=== PATIENT | male | born 2000 | race Two or more races ===

== ENCOUNTER 2023-05-29 11:22 | Emergency (ER) | payer BC, SELFPAY ==
[2023-05-29 11:40] VITALS: BP 120/81; PULSE 89; RESP 16; TEMP 36.6; O2SAT 100
--- NOTE | 2023-05-29 11:47 | ED.URI ---
HPI - URI/Sore Throat General Chief Complaint: Upper Respiratory Infection Stated Complaint: Sinus Infection symptoms Source: patient and RN notes reviewed Mode of arrival: ambulatory Limitations: no limitations History of Present Illness HPI Narrative: Patient is a 22-year-old male who presents to the [facility] with complaints of increased fatigue since Sunday. Patient states that he has also had some ear fullness, nasal congestion, headache, sore throat. Patient states that his girlfriend has similar symptoms. He denies cough, chest pain, shortness of breath. Denies abdominal pain, nausea, vomiting, diarrhea. Related Data Home Medications Medication Instructions Recorded Confirmed cetirizine 10 mg tablet (Zyrtec) 10 mg PO QHS PRN 11/29/21 11/29/21 Allergies Allergy/AdvReac Type Severity Reaction Status Date / Time No Known Allergies Allergy Mild Verified 11/29/21 16:11 Review of Systems Review of Systems: CONSTITUTIONAL: Denies fever, chills, or sweats. EYES: Denies visual changes, redness, or discharge. ENT: Reports ear fullness and sore throat. Reports nasal congestion and drainage. CARDIOVASCULAR: Denies chest pain, palpitations, or edema. RESPIRATORY: Denies cough or dyspnea. GASTROINTESTINAL: Denies abdominal pain, nausea, vomiting, or diarrhea. GENITOURINARY: Denies dysuria or hematuria. SKIN: Denies rash or itching. MUSCULOSKELETAL: Denies back pain, joint pain, or myalgia. NEUROLOGIC: Reports headache but denies numbness or weakness. Pertinent positives per HPI. [facility]LY [facility] Past Medical History Medical History Anxiety Insomnia Obesity (BMI 35.0-39.9 without comorbidity) Pharyngitis Seasonal allergic rhinitis Vaping nicotine dependence, non-tobacco product Weight gain Family History Family History Mother Anxiety Father Heart disease Sibling Thyroid disorder Social History Social History Smoking status: Never smoker Alcohol intake: current Alcohol use details: vodka Substance use: never Substance use type: does not use Comments At the time of my signature, I reviewed and agree with the nursing past medical, surgical, social, and family history. There is no relevant family history pertinent to the patient complaint. Exam Narrative: GENERAL: This is a well-nourished, well-developed patient, in no apparent distress. HEAD: normocephalic, atraumatic. EYES: Sclera clear/white. Vision is grossly intact. EARS: External ears normal, auditory canals clear and without drainage, TMs normal without perforation. Hearing grossly intact. NOSE: External nose normal. Mild congestion. THROAT: Mucous membranes moist. Oropharyngeal erythema without exudate or ulceration NECK: Neck supple, non-tender without lymphadenopathy, masses or thyromegaly. CARDIOVASCULAR: Regular rate and rhythm without murmurs, gallops, or rubs. RESPIRATORY: Clear to auscultation. Breath sounds equal bilaterally. No wheezes, rales, or rhonchi. GASTROINTESTINAL: Abdomen soft, non-tender, nondistended. Bowel sounds are active. No hepato-splenomegaly, or palpable masses. No guarding. SKIN: warm, intact with no suspicious lesions or rash, good texture and turgor. NEURO: awake, alert, and oriented to person, place and time. There were no obvious focal neurologic abnormalities. Course Course Level of Care: Express Care Visit Vital Signs Vital signs: Vital Signs Temperature 98 F 05/29/23 11:40 Pulse Rate 89 05/29/23 11:40 Respiratory Rate 16 05/29/23 11:40 Blood Pressure 120/81 05/29/23 11:40 Pulse Oximetry 100 05/29/23 11:40 Temperature 98 F 05/29/23 11:40 Pulse Rate 89 05/29/23 11:40 Respiratory Rate 16 05/29/23 11:40 Blood Pressure 120/81 05/29/23 11:40 Pulse Oximetry 100 05/29/23 11:40 Reviewed
== END 2023-05-29 12:06 | disposition home or self-care (01) ==
PROVIDERS: Emergency Provider Nurse Practitioner
DX: B34.9 Viral infection, unspecified (principal)
CPT/HCPCS: 87081; 87880; 99213; G0463

== ENCOUNTER 2023-07-01 17:11 | Emergency (ER) | payer BC, SELFPAY ==
[2023-07-01 17:36] VITALS: BP 117/67; PULSE 78; RESP 16; TEMP 36.8; O2SAT 98
--- NOTE | 2023-07-01 17:51 | ED.URI ---
HPI - URI/Sore Throat General Chief Complaint: Upper Respiratory Infection Stated Complaint: Sore Throat Time Seen by Provider: 07/01/23 17:51 Source: patient, RN notes reviewed and old records reviewed Mode of arrival: ambulatory Limitations: no limitations History of Present Illness HPI Narrative: 22-year-old male presents to the [facility] with complaints of a sore throat that started Sunday, 5 days ago. Patient has tried [id number] products and a Tylenol cold tablet. Denies fevers. Patient reports that everything in his throat felt swollen. Patient maintaining on secretions. Able to eat and drink without issue. Onset (ago): day(s) (5) Related Data Home Medications Medication Instructions Recorded Confirmed cetirizine 10 mg tablet (Zyrtec) 10 mg PO QHS PRN 11/29/21 11/29/21 Allergies Allergy/AdvReac Type Severity Reaction Status Date / Time No Known Allergies Allergy Mild Verified 11/29/21 16:11 Review of Systems Review of Systems: All systems reviewed & are unremarkable except as noted in HPI and below Constitutional: Constitutional: Reports no additional constitutional complaints Eyes: Eyes: Reports no additional eye complaints ENT: Reports as per HPI and Reports sore throat Cardiovascular: Cardiovascular: Reports no additional cardiovascular complaints, Denies chest pain and Denies dyspnea Respiratory: Respiratory: Reports no additional respiratory complaints, Denies chest congestion, Denies cough and Denies dyspnea Gastrointestinal: Gastrointestinal: Reports no additional gastrointestinal complaints, Denies abdominal pain, Denies nausea and Denies vomiting Musculoskeletal: Musculoskeletal: Reports no additional musculoskeletal complaints Integumentary/Breasts: Skin/Breast: Reports system reviewed and no additional complaints, except as docu Neurologic: Reports system reviewed and no additional complaints, except as documented Psychiatric: Psychiatric: Reports no additional psychiatric complaints Allergic/Immunologic: Allergic/Immunologic: Reports no additional allergic/immunologic complaints PMFSH Past Medical History Medical History Anxiety Insomnia Obesity (BMI 35.0-39.9 without comorbidity) Pharyngitis Seasonal allergic rhinitis Vaping nicotine dependence, non-tobacco product Weight gain Family History Family History Mother Anxiety Father Heart disease Sibling Thyroid disorder Social History Social History (Reviewed 07/01/23 @ 19:52 by TERI Galarza Smoking status: Never smoker Alcohol intake: current Alcohol use details: vodka Substance use: never Substance use type: does not use Comments At the time of my signature, I reviewed and agree with the nursing past medical, surgical, social, and family history. There is no relevant family history pertinent to the patient complaint. Exam Const: General: cooperative, healthy appearing, comfortable, no acute distress, well developed, alert and well nourished Nutritional Appearance: well nourished and obese Orientation/consciousness: patient oriented x3 Limitations: no limitations HENMT: Head: normal to inspection Ears: hearing grossly normal bilaterally, external ears normal, TM's normal bilaterally and EAC's normal Face/Nose/Sinus: Normal external nose present, Normal nares present, Normal nasal mucous membranes and turbinates present, normal facial exam and face symmetric Face and sinus: normal facial exam and face symmetric Mouth: Yes Normal oral and palatal mucosa present, Yes lip normal and Yes moist mucous membranes Throat: posterior oropharynx normal, tonsils normal, uvula midline and postnasal drainage Eyes: General: appearance normal, both eyes and all related structures Alignment and Position: alignment normal Periorbital: periorbital findings normal Pupils: Equal, round and reactive p
== END 2023-07-01 18:10 | disposition home or self-care (01) ==
PROVIDERS: Emergency Provider Nurse Practitioner; PCP Family Medicine
DX: J02.9 Acute pharyngitis, unspecified (principal); E66.9 Obesity, unspecified; Z68.34 Body mass index [BMI] 34.0-34.9, adult
CPT/HCPCS: 87081; 87880; 99213; G0463